=== PATIENT | female | born 1995 | race Caucasian/White ===

== ENCOUNTER 2019-01-06 11:54 | Outpatient (CLI) | payer OTHER | END 2019-01-06 13:24 | disposition home or self-care (01) | LOC: OBT 11:54 → L-D 11:54 → OBT 13:24 | DX: O41.93X0 Disorder of amniotic fluid and membranes, unspecified, third trimester, not applicable or unspecified (principal); Z3A.34 34 weeks gestation of pregnancy | CPT/HCPCS: 76818 ==

== ENCOUNTER 2019-01-20 16:22 | Outpatient (CLI) | payer OTHER | END 2019-01-20 17:20 | disposition home or self-care (01) | LOC: OBT 16:22 → L-D 16:23 → OBT 17:20 | DX: O62.9 Abnormality of forces of labor, unspecified (principal); Z3A.36 36 weeks gestation of pregnancy | CPT/HCPCS: 76818 ==